=== PATIENT | female | born 1980 | race Caucasian/White ===

== ENCOUNTER 2016-08-18 13:27 | Emergency (ER) | payer OTHER ==
[2016-08-18 13:36] VITALS: TEMP 97.5
--- NOTE | 2016-08-18 14:08 | EDPHY ---
H & P Stated Complaint: Keeps having nervous breakdown, unsure if she has SI Source: Patient, Family - Personal History LMP (Females 10-55): 15-21 Days Ago Current Tetanus Diphtheria and Acellular Pertussis (TDAP): Yes Tetanus Vaccine Date: 2005 - Medical/Surgical History Hx Asthma: No Hx Chronic Respiratory Disease: No Hx Diabetes: No Hx Cardiac Disease: No Hx Renal Disease: No Hx Cirrhosis: No Hx Alcoholism: No Hx HIV/AIDS: No Hx Splenectomy or Spleen Trauma: No Other PMH: hypothyroidism, lymes Dx, toxic mold illness, depression, anxiety - Social History Smoking Status: Never smoked Time Seen by Provider: 08/18/16 13:47 HPI/ROS: CHIEF COMPLAINT: suicidal thoughts, nervous breakdown HISTORY OF PRESENT ILLNESS: This is a 35-year-old female presenting to the emergency department with her mother. Patient reports an increase in stress and feeling overwhelmed "I feel like I am going have a nervous breakdown". Patient reports she has been dealing with a toxic mold issue within her house over the past 2 months, seems like stress and everything has increased over the past 4 weeks with every house inspection looking for mold. Patient said she has had an increased in suicidal thoughts" I just feel I can't take it anymore" . patient reports has thoughts with a plan "I can' t get a gun and shoot myself , or I can slit my wrists, or I can even take some pills but I do not have any pills. But I won't go through with any plan because I know it would hurt my mother and my ". Mother at bedside, mother also states patient has made comments about her not taking this stress anymore and she just wants to be with her father who has a year and half ago. The patient states feels very safe right now with mother, no suicidal thoughts at this time. Here voluntarily for evaluation REVIEW OF SYSTEMS: Constitutional: No fever, no chills. Eyes: No discharge. ENT: No sore throat. Cardiovascular: No chest pain, no palpitations. Respiratory: No cough, no shortness of breath. Gastrointestinal: No abdominal pain, no vomiting. Genitourinary: No hematuria. Musculoskeletal: No back pain. Skin: No rashes. Neurological: No headache. Suicidal ideation anxious (Regina Sharp) - Physical Exam Exam: General Appearance: Alert, no distress. Intermittently crying HEENT: Pupils equal and round no pallor or injection. Mucous membranes moist. Respiratory: There are no retractions, lungs are clear to auscultation. Cardiovascular: Regular rate and rhythm. Gastrointestinal: Abdomen is soft and nontender, no masses, bowel sounds normal. Neurological: No focal deficits Skin: Warm and dry, no rashes. Musculoskeletal: Neck is supple nontender. Extremities: symmetrical, full range of motion. Psychiatric: Patient is oriented X 3, there is agitation, patient at has episodes of crying emotional, then stop some becomes very calm (Regina Sharp) Constitutional: Initial Vital Signs Temperature (C) 36.4 C 08/18/16 13:29 Heart Rate 82 08/18/16 13:29 Respiratory Rate 16 08/18/16 13:29 Blood Pressure 105/67 08/18/16 13:29 O2 Sat (%) 100 08/18/16 13:29 O2 Delivery Mode Room Air Allergies/Adverse Reactions: No Known Allergies Allergy (Unverified 05/06/11 23:31) Home Medications: Medication Instructions Recorded Doxycycline Monohydrate 0 mg PO 05/06/11 [Doxycycline] Hydrocodone Bit/Acetaminophen 1 each PO PRN 05/06/11 [Hydrocodon-Acetaminophen 5-500] Ibuprofen [Motrin (*)] 600 mg PO 05/06/11 Diazepam [Valium] 5 mg PO Q8 PRN #10 tab 05/07/11 oxyCODONE/APAP 5/325 [Percocet 1 - 2 tab PO Q4-6PRN PRN #10 tab 05/07/11 5/325] Medical Decision Making ED Course/Re-evaluation: The patient was evaluated and managed by the Physician Marketing Campaign Analyst/ Nurse Practitioner. I discussed the patient's presentation and course with the midlevel provider with them and agree with the evaluation. My co-signature indicates that I have reviewed this chart and I agree with the findings and plan of care as documented. I am the secondary supervising physician. Patient was seen by [facility]. farmworker machine discussed the course with the psychiatrist. Both feel that the patient does not need inpatient treatment at this time. Extensive conversations were held with the patient as well as her family regarding outpatient resources which were available. Patient was given information regarding outpatient psychiatric treatment as well as referral to intensive outpatient counseling at [facility]. The patient was discharged with Ativan to use as needed for significant anxiety. (Camila Gonzalez) Discussed ED plan of care: CBC, BMP, UA drug tox, ETOH psych evaluation 1510: Discussed patient evaluation with Derek (TLC) once patient has been medically cleared 1515: Patient medically cleared for T[facility] evaluation 1700: Pt hand off to Dr. Reyes. Pt stable awaiting TLC evaluation (Regina Sharp) Differential Diagnosis: Differential diagnosis of the patient's presenting complaint was considered including but not limited to functional and major depression, situational depression, obsessive-compulsive disorder, anxiety, hypothyroidism, medication side effect, drugs and alcohol abuse. (Camila Gonzalez) - Data Points Laboratory Results: Laboratory Results 08/18/16 14:22 08/18/16 14:22 Medications Given: Discontinued Medications Lorazepam (Ativan 1 Mg Prepack#4) 1 btl TAKEHOME EDNOW ONE Stop: 08/18/16 20:06 Last Admin: 08/18/16 20:15 Dose: 1 btl Departure - Departure Clinical Impression: Major depression Qualifiers: Major depression recurrence: recurrent Active/Remission status: currently active Major depression episode severity: moderate Qualified Code(s): F33.1 - Major depressive disorder, recurrent, moderate OCD (obsessive compulsive disorder) Qualifiers: Obsessive-compulsive disorder type: mixed obsessional thoughts and acts Qualified Code(s): F42.2 - Mixed obsessional thoughts and acts Condition: Good Instructions: Lorazepam (By mouth), Depression (ED), Suicide Prevention for Adults (ED) Additional Instructions: Follow up with outpatient therapist as scheduled on Sunday. You have been given referrals for Psychiatry evaluation as well as intensive outpatient counseling. You have contracted for safety. You may return to the emergency department or seek care urgently if you develop worsening symptoms of depression or worsening suicidal thoughts. You may use Ativan, 0.5-1 mg tablets 2 times a day for significant anxiety. Referrals: DARIUS THURSTON [Primary Care Provider] - As per Instructions
[2016-08-18 14:41] LABS: % IMMATURE GRANULYOCYTES 0.3 % (0.0-1.1); ABSOLUTE IMMATURE GRANULOCYTES 0.02 10^3/uL (0.00-0.10); ADD DIFF? NO; ADD MORPH? NO; ADD SCAN? NO; ATYPICAL LYMPHOCYTE FLAG 0 (0-99); FRAGMENT RBC FLAG 0 (0-99); HEMATOCRIT 39.7 % (38.0-47.0); HEMOGLOBIN 13.8 g/dL (12.6-16.3); LEFT SHIFT FLG 0 (0-99); LIPEMIA HEMOLYSIS FLAG 90 (0-99); MEAN CELL HEMOGLOBIN 31.5 pg (27.9-34.1); MEAN CELL HEMOGLOBIN CONCENTR. 34.8 g/dL (32.4-36.7); MEAN CELL VOLUME 90.6 fL (81.5-99.8); MEAN PLATELET VOLUME 9.5 fL (8.7-11.7); PLATELET CLUMPS FLAG 0 (0-99); PLATELET COUNT 252 10^3/uL (150-400); RED BLOOD CELL COUNT 4.38 10^6/uL (4.18-5.33); RED CELL DISTRIBUTION WIDTH 12.1 % (11.5-15.2)
[2016-08-18 15:08] LABS: ANION GAP 12 mEq/L (8-16); CALCIUM 9.5 mg/dL (8.5-10.4); CARBON DIOXIDE 20 mEq/l (22-31); CHLORIDE 107 mEq/L (97-110); CREATININE 0.7 mg/dL (0.6-1.0); ETHANOL SERUM < 10 mg/dL (0-10); GLOMERULAR FILTRATION RATE > 60; GLUCOSE 99 mg/dL (70-100); POTASSIUM 4.2 mEq/L (3.5-5.2); SALICYLATE < 1.0 mg/dL (2.0-20.0); SODIUM 139 mEq/L (134-144)
[2016-08-18] MEDS ORDERED: LORAZEPAM 1 MG PREPACK#4 BTL TAKEHOME ONE (20:05)
[2016-08-18 20:28] VITALS: BP 103/58; PULSE 80; RESP 18; O2SAT 96
== END 2016-08-18 20:28 | disposition home or self-care (01) ==
DX: F33.1 Major depressive disorder, recurrent, moderate (principal); F42.2 Mixed obsessional thoughts and acts
CPT/HCPCS: 80305; G0480

== ENCOUNTER → 2017-05-29 | Outpatient (CLI) | payer BC, OTHER | LOC: BMCIMAGING 18:48 | PROVIDERS: ATTEND Family Medicine | DX: M25.572 Pain in left ankle and joints of left foot (principal) ==